=== PATIENT | male | born 1980 | race Caucasian/White ===

== ENCOUNTER → 2017-12-12 | Emergency (ER) | payer MEDICARE, OTHER ==
[~2017-12-12] VITALS: Ht 182.9 cm; Wt 83.9 kg
[~2017-12-12] MED LIST: HYDROCODONE/APAP 5MG-325MG TAB PO ONE
--- NOTE | 2017-12-12 18:34 | Diagnostic Imaging Report ---
Examination: CT BRAIN WITHOUT CONTRAST History:Fall; head injury. Comparison studies:None Technique: Axial images were obtained from the skull base to the vertex. Coronal and sagittal images reconstructed from the axial data. Dose modulation, iterative reconstruction, and/or weight based adjustment of the mA/kV was utilized to reduce the radiation dose to as low as reasonably achievable. Intravenous contrast: None Findings: Scalp: No abnormalities. Bones: No fractures, blastic or lytic lesions. Brain sulci: Appropriate for age. Ventricles: Normal in size and configuration. No hydrocephalus. Extra-axial space: No abnormalities. Parenchyma: Bilateral caudate atrophy. No masses, hemorrhage, or acute or chronic cortical based vascular insults.. Sellar/suprasellar region: No abnormalities. Craniocervical junction: Patent foramen magnum. No Chiari one malformation. Incidental findings: Mild circumferential inflammatory mucosal thickening of the right maxillary sinus. Impression: 1. No acute abnormality. 2. 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 Signed by: Dr. Monica Scott M.D. on 12/12/2017 6:30 PM
--- NOTE | 2017-12-12 18:39 | Diagnostic Imaging Report ---
Examination: CT CERVICAL SPINE WITHOUT CONTRAST HISTORY:Neck pain. Fall. COMPARISON:None. TECHNIQUE: Multidetector helical axial images were obtained without contrast from the foramen magnum to T1. Coronal and sagittal reformatted images were done. Bone and soft tissue windows were evaluated. Dose modulation, iterative reconstruction, and/or weight based adjustment of the mA/kV was utilized to reduce the radiation dose to as low as reasonably achievable. FINDINGS: Alignment:Normal alignment and lordosis. Vertebrae: Normal height and density. No acute fracture, infection or neoplasm. Disc space heights: Normal height. Caliber of spinal canal: Developmentally normal. Posterior fossa and craniocervical junction: Foramen magnum patent. No Chiari 1 malformation. Soft tissues: No abnormality. Degenerative changes: Severe bilateral neural foraminal narrowing at C3-C4. Severe left foraminal narrowing at C6-C7. No canal stenosis. IMPRESSION: No acute abnormalities. Signed by: Dr. Moncia Scott M.D. on 12/12/2017 6:36 PM
--- NOTE | 2017-12-12 18:44 | Diagnostic Imaging Report ---
Examination: CT LUMBAR SPINE WITHOUT CONTRAST History: Low back pain; fall. Comparison studies: None Technique: Axial images were obtained through the lumbar spine from L1. Coronal and sagittal reconstructions obtained from the axial data. Dose modulation, iterative reconstruction, and/or weight based adjustment of the mA/kV was utilized to reduce the radiation dose to as low as reasonably achievable. Intravenous contrast: None Findings: The usual 5 non-rib bearing lumbar vertebral bodies are present. Alignment: Normal lordosis. No scoliosis. Soft tissues: No abnormalities. Paraspinal muscles: Unremarkable. Sacroiliac joints: Mild bilateral vacuum phenomenon consistent with degenerative changes. Vertebrae: No fractures, infection or neoplasm. Degenerative changes: L1-L2 through L4-L5: No abnormalities. L5-S1: Vacuum phenomenon. Asymmetric to the right disc bulge results in severe right foraminal narrowing. No left foraminal or canal stenosis. IMPRESSION: 1. No acute abnormality. 2. Degenerative severe right foraminal narrowing at L5-S1. Signed by: Dr. Monica Scott M.D. on 12/12/2017 6:40 PM
--- NOTE | 2017-12-12 19:06 | Diagnostic Imaging Report ---
LOWER LEG LEFT - 2 views HISTORY: Pain. Back pain and fall. COMPARISON: None available. FINDINGS: Bones: No acute displaced fracture. Osseous alignment is within normal limits. Joints: The joint spaces are well-maintained. Soft tissues: The soft tissues appear unremarkable. IMPRESSION: No acute radiographic abnormality. Signed by: Dr. Cristian Chaparro M.D. on 12/12/2017 7:03 PM
--- NOTE | 2017-12-12 19:06 | Diagnostic Imaging Report ---
ANKLE 3 + VIEWS RIGHT - 3 views HISTORY: Pain. Fall and back pain COMPARISON: None available. FINDINGS: Bones: No acute displaced fracture. Osseous alignment is within normal limits. Joints: The joint spaces are well-maintained. Soft tissues: The soft tissues appear unremarkable. IMPRESSION: No acute radiographic abnormality. Signed by: Dr. Cristian Chaparro M.D. on 12/12/2017 7:03 PM
--- NOTE | 2017-12-12 19:07 | Diagnostic Imaging Report ---
FEMUR 2 VIEWS MINIMUM LEFT - 2 views HISTORY: Pain. Fall and pain COMPARISON: None available. FINDINGS: Bones: No acute displaced fracture. Osseous alignment is within normal limits. Joints: The joint spaces are well-maintained. Soft tissues: The soft tissues appear unremarkable. IMPRESSION: No acute radiographic abnormality. Signed by: Dr. Cristian Chaparro M.D. on 12/12/2017 7:03 PM
--- NOTE | 2017-12-12 19:08 | Diagnostic Imaging Report ---
EXAMINATION: CHEST SINGLE (PORTABLE) INDICATION: \S\fall, pain COMPARISON: Fall and back pain FINDINGS: AP view TUBES and LINES: None. LUNGS: Lungs are not well inflated. Questionable bilateral airspace opacities in both upper lungs. PLEURA: No pleural effusion or pneumothorax. HEART AND MEDIASTINUM: The cardiomediastinal silhouette is unremarkable. BONES AND SOFT TISSUES: No acute osseous lesion. Soft tissues are unremarkable. UPPER ABDOMEN: No free air under the diaphragm. IMPRESSION: Questionable bilateral airspace opacities in bilateral upper lobes. This may be secondary to positioning and overlapping soft tissue. However, focal pneumonia cannot be excluded. Recommend repeat chest x-ray with better lung inspiration. Signed by: Dr. Cristian Chaparro M.D. on 12/12/2017 7:05 PM
--- NOTE | 2017-12-12 19:09 | Diagnostic Imaging Report ---
PELVIS AP 1-2 VIEWS - 1 views HISTORY: Pain. Fall and pain COMPARISON: None available. FINDINGS: Bones: No acute displaced fracture. Osseous alignment is within normal limits. Joints: The joint spaces are well-maintained. Soft tissues: The soft tissues appear unremarkable. IMPRESSION: No acute radiographic abnormality. Signed by: Dr. Cristian Chaparro M.D. on 12/12/2017 7:06 PM
== END | disposition home or self-care (01) ==
LOC: ER 16:49
DX: M54.5 Low back pain (principal); S39.012A Strain of muscle, fascia and tendon of lower back, initial encounter; R51 Headache; S00.83XA Contusion of other part of head, initial encounter; M54.2 Cervicalgia; S16.1XXA Strain of muscle, fascia and tendon at neck level, initial encounter; S90.01XA Contusion of right ankle, initial encounter; S70.12XA Contusion of left thigh, initial encounter; S80.12XA Contusion of left lower leg, initial encounter; W18.39XA Other fall on same level, initial encounter; Y93.01 Activity, walking, marching and hiking; Y92.008 Other place in unspecified non-institutional (private) residence as the place of occurrence of the external cause; G10 Huntington's disease
CPT/HCPCS: 70450; 71045; 72125; 72131; 72170; 99281

== ENCOUNTER 2017-12-25 18:39 | Inpatient (IN) | payer MEDICARE, OTHER ==
[~2017-12-25] VITALS: Ht 182.9 cm; Wt 87.5 kg
[~2017-12-25 18:39] MED LIST changes: -HYDROCODONE/APAP 5MG-325MG TAB PO ONE; +IPRATROPIUM BROMIDE 0.02% 2.5 ML NEB NEB SCH
[2017-12-25] MEDS ORDERED: ACETAMINOPHEN 1000 MG/100 ML IV STA (19:12)
[2017-12-25] MEDS ORDERED: SODIUM CHLORIDE 0.9% 1000ML 1,000 ML IV ONE ×2 (19:15→20:45)
[2017-12-25] MEDS ORDERED: CEFTRIAXONE SOD 1 GM VIAL IV ONE (19:15)
[2017-12-25 19:44] LABS: BASOPHILS # (AUTO) 0.1 (0.0-0.1); BASOPHILS % 0.3 % (0.0-1.0); EOSINOPHILS % 0.2 % (0.0-6.0); HEMATOCRIT 43.3 % (38.2-49.6); HEMOGLOBIN 14.4 g/dL (14.0-18.0); LYMPHOCYTES # (AUTO) 1.4 (1.0-3.2); LYMPHOCYTES % 8.2 % (18.0-39.1); MEAN CORPUSCULAR HEMOGLOBIN 31.3 pg (28-32); MEAN CORPUSCULAR HGB CONC 33.3 g/dL (31-35); MEAN CORPUSCULAR VOLUME 94.1 fL (81-99); MONOCYTES # (AUTO) 2.1 (0.2-0.8); MONOCYTES % 12.2 % (4.4-11.3); NEUTROPHILS # (AUTO) 13.6 (2.1-6.9); NEUTROPHILS % 78.6 % (38.7-80.0); PLATELET COUNT 330 x10e3/uL (140-360); RED CELL DISTRIBUTION WIDTH 11.9 % (11.7-14.4)
--- NOTE | 2017-12-25 20:03 | Diagnostic Imaging Report ---
Examination: Single AP view of the chest. COMPARISON: December 12, 2017 INDICATION: Fever DISCUSSION: Lines/tubes: None. Lungs: Possible left lower lobe consolidation. Pleura: There is no pleural effusion or pneumothorax. Heart and mediastinum: The heart and the mediastinum are unremarkable. Bones and soft tissues: No acute bony abnormalities. IMPRESSION: 1. Possible left lower lobe pneumonia/aspiration. Signed by: Dr. Geovany Cunningham M.D. on 12/25/2017 8:00 PM
[2017-12-25 20:07] LABS: ALANINE AMINOTRANSFERASE 55 IU/L (0-55); ALBUMIN 3.9 g/dL (3.5-5.0); ALKALINE PHOSPHATASE 74 IU/L (40-150); ANION GAP 14.4 mmol/L (8-16); BLOOD UREA NITROGEN 11 mg/dL (7-26); BUN/CREATININE RATIO 10 (6-25); CALCIUM 10.1 mg/dL (8.4-10.2); CARBON DIOXIDE 28 mmol/L (22-29); CHLORIDE 95 mmol/L (98-107); CREATINE KINASE 593 IU/L (30-200); CREATININE, SERUM 1.08 mg/dL (0.72-1.25); EST GLOMERULAR FILTRATION RATE > 60 ML/MIN (60-); GLUCOSE 130 mg/dL (74-118); POTASSIUM 4.4 mmol/L (3.5-5.1); SODIUM 133 mmol/L (136-145)
--- NOTE | 2017-12-25 20:23 | Diagnostic Imaging Report ---
EXAMINATION: Head CT without contrast. HISTORY:Altered mental status, unable to move, history of Adelso's disease. COMPARISON:CT brain from 12/12/2017. TECHNIQUE: Multidetector axial images were obtained from the foramen magnum to the vertex without contrast. The images were reconstructed using brain and bone algorithms. Thin section brain images were reformatted into coronal and sagittal planes. Dose modulation, iterative reconstruction, and/or weight based adjustment of the mA/kV was utilized to reduce the radiation dose to as low as reasonably achievable. Intravenous contrast: None IMAGE QUALITY: Suboptimal evaluation due to motion-related streak artifacts. FINDINGS: Skull/scalp: No lytic or blastic. lesions. No surgical changes. Parenchyma: Unchanged bilateral caudate atrophy. No acute hemorrhage, mass or acute major vascular territorial infarct. Arteries: No density suggestive of thrombosis. Dural sinuses: No abnormal density suggestive of thrombosis. Ventricles: Unchanged exvacuodilatation of frontal horn of bilateral lateral ventricles secondary to caudate atrophy. No hydrocephalus. Extra-axial spaces: No abnormal density. Brain volume: Moderate generalized cerebral volume loss. Craniocervical junction: No mass, Chiari malformation, or basilar invagination. Sella: No mass. Paranasal/mastoid sinuses: Moderate mucosal thickening in bilateral maxillary sinus, mild mucosal thickening in left ethmoid sinus. IMPRESSION: 1. No acute intracranial abnormality. 2. Unchanged bilateral caudate atrophy, given history of known Dahlen's disease. 3. Moderate generalized cerebral volume loss, advanced for patient's given age. Signed by: Dr. Catia Lennon M.D. on 12/25/2017 8:20 PM
[2017-12-25 20:34] LABS: BILIRUBIN,URINE NEGATIVE (NEGATIVE); CLARITY,URINE SL CLOUDY (CLEAR); COLOR,URINE YELLOW (YELLOW); KETONES,URINE NEGATIVE (NEGATIVE); LEUKOCYTE ESTERASE ,URINE NEGATIVE (NEGATIVE); NITRITE,URINE NEGATIVE (NEGATIVE); PROTEIN,URINE DIPSTICK 1+ (NEGATIVE); URINE UROBILINOGEN 4 mg/dL (0.2 - 1)
[2017-12-25] MEDS ORDERED: AZITHROMYCIN 500MG/NS 250 ML 250 ML IV STA (20:39)
[2017-12-25] MEDS ORDERED: SODIUM CHLORIDE 0.9% 1000ML 1,000 ML ONE (20:41)
[2017-12-25 20:47] LABS: RBC,URINE 0-5 /HPF (0-5)
[2017-12-25 20:54] LABS: LYMPHOCYTES % (MANUAL) 5 % (19-48); MONOCYTES % (MANUAL) 7 % (3.4-9.0); NEUTROPHILS % (MANUAL) 79 % (40-74); PLATELET ESTIMATE ADEQUATE; PLATELET MORPHOLOGY COMMENT NORMAL; RBC MORPHOLOGY COMMENT NORMAL
[2017-12-25] MEDS ORDERED: ALBUTEROL SULF 0.083% NEB SOLN 3 ML NEB NEB SCH (21:30)
[2017-12-25] MEDS ORDERED: AUSTEDO PO (22:14)
[2017-12-25] MEDS ORDERED: CITALOPRAM HBR20 MG PO (22:14)
[2017-12-25] MEDS ORDERED: LORAZEPAM INJ 2 MG/ML VIAL IV ONE (22:15)
[2017-12-25] MEDS ORDERED: CEFTRIAXONE SOD 1 GM VIAL IV SCH (22:15)
[2017-12-25] MEDS: AZITHROMYCIN 500MG/NS 250 ML 250 ML IV SCH (22:20)
[2017-12-25 23:00] VITALS: BP 143/67
[2017-12-25] MEDS: SODIUM CHLORIDE 0.9% 1000ML 1,000 ML IV SCH (23:48)
[2017-12-25] MEDS: ACETAMINOPHEN 1000 MG/100 ML IV PRN (23:48)
[2017-12-25] MEDS: ONDANSETRON HCL INJ 2 MG/ML VIAL IV PRN (23:48)
[2017-12-26] VITALS (7 sets, daily range): BP systolic 126–143; BP diastolic 63–76
[2017-12-26 04:35] LABS: BASOPHILS % 0.2 % (0.0-1.0); EOSINOPHILS % 0.2 % (0.0-6.0); HEMATOCRIT 37.3 % (38.2-49.6); HEMOGLOBIN 12.5 g/dL (14.0-18.0); LYMPHOCYTES # (AUTO) 1.2 (1.0-3.2); LYMPHOCYTES % 8.8 % (18.0-39.1); MEAN CORPUSCULAR HEMOGLOBIN 31.3 pg (28-32); MEAN CORPUSCULAR HGB CONC 33.5 g/dL (31-35); MEAN CORPUSCULAR VOLUME 93.3 fL (81-99); MONOCYTES # (AUTO) 1.8 (0.2-0.8); MONOCYTES % 13.8 % (4.4-11.3); NEUTROPHILS # (AUTO) 10.1 (2.1-6.9); NEUTROPHILS % 76.6 % (38.7-80.0); PLATELET COUNT 283 x10e3/uL (140-360); RED CELL DISTRIBUTION WIDTH 12.1 % (11.7-14.4)
[2017-12-26 05:14] LABS: ALANINE AMINOTRANSFERASE 42 IU/L (0-55); ALBUMIN 3.1 g/dL (3.5-5.0); ALKALINE PHOSPHATASE 60 IU/L (40-150); ANION GAP 12.1 mmol/L (8-16); BLOOD UREA NITROGEN 10 mg/dL (7-26); BUN/CREATININE RATIO 10 (6-25); CALCIUM 8.8 mg/dL (8.4-10.2); CARBON DIOXIDE 27 mmol/L (22-29); CHLORIDE 102 mmol/L (98-107); CREATININE, SERUM 0.99 mg/dL (0.72-1.25); EST GLOMERULAR FILTRATION RATE > 60 ML/MIN (60-); GLUCOSE 114 mg/dL (74-118); POTASSIUM 4.1 mmol/L (3.5-5.1); SODIUM 137 mmol/L (136-145)
[2017-12-26 06:41] LABS: CREATINE KINASE 668 IU/L (30-200)
[2017-12-26] MEDS: ACETAMINOPHEN 1000 MG/100 ML IV PRN ×2 (07:20→18:19)
[2017-12-26] MEDS: SODIUM CHLORIDE 0.9% 1000ML 1,000 ML IV SCH ×2 (07:20→16:00)
--- NOTE | 2017-12-26 08:47 | History and Physical ---
CHIEF COMPLAINTS 1. Cough. 2. Fever. HPI: This is a 37-year-old male with a past medical history of Lyman chorea. He is seeing a neurologist. He was seen by me a few years ago. He was in his usual state of health until the patient came last night to the ER with fever and cough since the last 4 or 5 days. The patient's condition was getting worse. The fever was getting worse. The patient's mother brought the patient to the ER. He was found to have left lower lobe pneumonia. The patient also has a history of worsening of Adelso chorea with recurrent falls. The last CT in the ER showed normal head CT except for Adelso chorea changes. Unable to get more history from the patient, but he has high fever. No diarrhea. No abdominal pain. No nausea or vomiting. Has multiple bruises on the legs. ALLERGIES: NO KNOWN DRUG ALLERGIES. PAST MEDICAL HISTORY: Lyman chorea. PAST SURGICAL HISTORY: None. SOCIAL HISTORY: The patient is single and lives with his mother. HABITS: Denies smoking. Denies alcohol. Denies any illicit drug use. MEDICATIONS: List attached. REVIEW OF SYSTEMS GENERAL: Fever and recurrent falls. CARDIOPULMONARY: No chest pain. Has some cough. No shortness of breath. ALIMENTARY SYSTEM: No nausea or vomiting. GENITOURINARY SYSTEM: No dysuria. MUSCULOSKELETAL: Has some joint pain. CENTRAL NERVOUS SYSTEM: Has multiple rigidity, but no seizures. PHYSICAL EXAMINATION GENERAL: This is a 37-year-old male who is alert but oriented times 0. VITAL SIGNS: Temperature 101.4, blood pressure 126/63. HEENT: Head is atraumatic and normocephalic. Pupils are bilaterally equal and reactive to light. The extraocular muscles are intact. Neck is rigid. No clubbing. No cyanosis. Conjunctivae are normal. Sclerae are normal. LUNGS: Decreased breath sounds at the right base. HEART: S1 and S2, regular rate and rhythm. No S3, S4 or murmur. ABDOMEN: Soft. Nontender. No guarding. No rigidity. EXTREMITIES: No edema. Range of motion is normal but stiffness at the joints. SYNCHRONIZER: The patient has generalized weakness and oriented times 0. IMAGING: Chest x-ray: Left lower lobe pneumonia. CT of the head shows degenerative caudate nucleus. LABS: White count 17.26, hemoglobin and hematocrit normal, platelets normal. Urine is normal. Blood culture pending. Sodium 137, potassium 4.1, AST 36, CPK 593. EKG: Sinus tachycardia at 138 per minute. ASSESSMENT 1. Left lower lobe pneumonia, possible community acquired versus aspiration pneumonia. 2. Rule out dysphagia. 3. Worsening of Lyman chorea. 4. Recurrent falls. 5. Mild rhabdomyolysis. PLAN: Admit the patient to the medical floor. IV fluids with normal saline at 125 mL per hour. Rocephin 2 g IV q.24 h. Zithromax 500 IV q.24 h. ID consult with Dr. Hope. Pulmonary consult with Dr. Holden. Tylenol p.r.n. for fever. Labs tomorrow. Discussed with the mother that the patient is DNR, but mother will think about it and let us know about code status change or keep the same. Condition and prognosis are guarded and poor. Job#: [id number]
[2017-12-26 10:07] LABS: BAND NEUTROPHILS % (MANUAL) 2 %; LYMPHOCYTES % (MANUAL) 13 % (19-48); MONOCYTES % (MANUAL) 8 % (3.4-9.0); NEUTROPHILS % (MANUAL) 77 % (40-74); RBC MORPHOLOGY COMMENT NORMAL
[2017-12-26 10:08] LABS: PLATELET ESTIMATE ADEQUATE; PLATELET MORPHOLOGY COMMENT NORMAL; TOXIC GRANULATION SLIGHT
[2017-12-26 12:56] LABS: CREATINE KINASE 776 IU/L (30-200)
--- NOTE | 2017-12-26 14:39 | Consultation ---
DATE OF CONSULTATION: December 26, 2017 PULMONARY CONSULTATION REASON FOR CONSULTATION: Pneumonia. HPI: Mr. 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 Source of history is the chart and the mother. Patient cannot talk, has Homestead's chorea, and is unable to talk, has dementia as well. REVIEW OF SYSTEMS: Unable to elicit any from the patient. PAST MEDICAL HISTORY: Homestead's chorea. PAST SURGICAL HISTORY: None. FAMILY HISTORY AND SOCIAL HISTORY: He lives with his mother. He does not smoke, does not drink. PHYSICAL EXAMINATION VITAL SIGNS: Temperature 101.4, pulse 108, blood pressure 126/83, respiratory rate of 18. HEENT/NECK: Head atraumatic and normocephalic. Neck is supple. Oral mucosa is dry. Poor dentition. CHEST: Few crackles in the bases, but otherwise clear. HEART: S1, S2 audible. ABDOMEN: Soft. EXTREMITIES: No pedal edema. NEUROLOGIC: Awake and alert. Chest x-ray; left lower lobe infiltrative pneumonia. LABS: White count of 17,000, white count now is 13,000, hemoglobin 12.5, and platelets 283. Chemistries within normal limits. ASSESSMENT AND PLAN: Mr. Novoa is a 37-year-old unfortunate male with Adelso's chorea likely the risk for aspiration. Patient has leukocytosis and fever likely has aspiration pneumonitis. Continue the patient on Rocephin and azithromycin. Continue the nebulizer treatment. He seems to be responding well to this medication. Job#: [id number] RELL
--- NOTE | 2017-12-26 16:03 | Consultation ---
DATE OF CONSULTATION: December 26, 2017 REASON FOR CONSULTATION: Pneumonia. HISTORY OF PRESENT ILLNESS: This patient who is a 37-year-old white male with history of Gaines's chorea, being taken care by his mother. She says he has never been in a hospital except for a week ago when he fell and she brought him here where he had x-rays and CT scan. She was told there was no fracture. He did not stay in the hospital. He was just in the emergency room. Patient was discharged home and apparently while he was eating, he started to have some cough although he did not have this problem before. The patient who has history of Gaines's chorea, otherwise no other medical histories. So, she brought him here because of fever and chills. Patient was started on Rocephin and azithromycin. When he first came, his white count was 17.26, today is 13.16. Patient's mother thinks he is getting better overall clinically. The patient who is noncommunicative to me but she said that she can communicate generally with him. PAST MEDICAL HISTORY: Gaines's chorea. PAST SURGICAL HISTORY: Denies. ALLERGIES: NKA. SOCIAL HISTORY: There is no smoking, drug abuse, alcohol abuse. He lives with his mother. REVIEW OF SYSTEMS: According to her, he was just a bit confused. Positive cough and fever but now seems a lot better according to her. This is the first time he got pneumonia. He does not get flu vaccination but she gets flu vaccination. He is mainly homebound. LABS ON ADMISSION: White count 17.26, today is 13.16, hemoglobin 14, today is 12.5, platelets of . Sodium 137, potassium 4.1, creatinine of 0.99. His blood cultures still pending, urine cultures still pending. Chest x-ray which was done showed he have possible left lower lobe pneumonia. The patient of interest did have swallow evaluation and she is telling me that he passed the evaluation earlier today. PHYSICAL EXAMINATION GENERAL: He is currently alert and does not seem to be in acute distress. VITALS: Stable, currently afebrile. HEENT: He is normocephalic, not icteric. CHEST: A few crackles at the bases of left. COR: S1, S2. No murmur. ABDOMEN: Soft. IMPRESSION AND PLAN: Pneumonia, probably aspiration, community acquired. He is currently on Rocephin, azithromycin and clinically seems to be better. We will follow with you. I am still concerned he probably aspirated even though initial evaluation was negative. We will see how he is going to do in next 24 hours or so. Job#: [id number] SANDEE
[2017-12-26] MEDS: CEFTRIAXONE SOD 1 GM VIAL IV SCH (22:15)
[2017-12-26] MEDS: AZITHROMYCIN 500MG/NS 250 ML 250 ML IV SCH (22:15)
[2017-12-27] VITALS (7 sets, daily range): BP systolic 116–151; BP diastolic 58–76
[2017-12-27] MEDS ORDERED: ACETAMINOPHEN 325 MG TAB PO PRN (01:00)
[2017-12-27] MEDS ORDERED: GUAIFENESIN/CODEINE 10 ML CUP PO PRN (01:00)
[2017-12-27] MEDS: SODIUM CHLORIDE 0.9% 1000ML 1,000 ML IV SCH ×4 (01:30→18:13)
[2017-12-27] MEDS: ONDANSETRON HCL INJ 2 MG/ML VIAL IV PRN (02:31)
[2017-12-27 04:40] LABS: BASOPHILS % 0.2 % (0.0-1.0); EOSINOPHILS % 0.2 % (0.0-6.0); HEMATOCRIT 38.8 % (38.2-49.6); HEMOGLOBIN 12.9 g/dL (14.0-18.0); LYMPHOCYTES # (AUTO) 0.9 (1.0-3.2); LYMPHOCYTES % 7.4 % (18.0-39.1); MEAN CORPUSCULAR HEMOGLOBIN 31.5 pg (28-32); MEAN CORPUSCULAR HGB CONC 33.2 g/dL (31-35); MEAN CORPUSCULAR VOLUME 94.6 fL (81-99); MONOCYTES # (AUTO) 1.2 (0.2-0.8); MONOCYTES % 10.2 % (4.4-11.3); NEUTROPHILS # (AUTO) 9.9 (2.1-6.9); NEUTROPHILS % 81.7 % (38.7-80.0); PLATELET COUNT 259 x10e3/uL (140-360); RED CELL DISTRIBUTION WIDTH 12.1 % (11.7-14.4)
[2017-12-27 05:09] LABS: ANION GAP 14.9 mmol/L (8-16); BLOOD UREA NITROGEN 8 mg/dL (7-26); BUN/CREATININE RATIO 9 (6-25); CALCIUM 9.1 mg/dL (8.4-10.2); CARBON DIOXIDE 26 mmol/L (22-29); CHLORIDE 102 mmol/L (98-107); EST GLOMERULAR FILTRATION RATE > 60 ML/MIN (60-); GLUCOSE 112 mg/dL (74-118); POTASSIUM 3.9 mmol/L (3.5-5.1); SODIUM 139 mmol/L (136-145)
[2017-12-27] MEDS ORDERED: GUAIFENESIN/DEXTROMETHORPHAN LIQD 5 ML UDC NG PRN (08:30)
[2017-12-27] MEDS ORDERED: METHOCARBAMOL 500 MG TAB PO PRN (08:45)
[2017-12-27] MEDS: CITALOPRAM HYDROBROMIDE 20 MG TAB PO SCH (09:00)
[2017-12-27] MEDS: DEUTETRABENAZINE 24 MG PO SCH ×2 (09:00→17:00)
[2017-12-27] MEDS ORDERED: BACLOFEN 10 MG TAB PO SCH (09:00)
[2017-12-27] MEDS: ACETAMINOPHEN 325 MG/10 ML UDC PO PRN ×2 (10:25→16:23)
[2017-12-27] MEDS: BACLOFEN 10 MG TAB PO SCH ×2 (16:23→21:24)
--- NOTE | 2017-12-27 18:01 | Consultation ---
DATE OF CONSULTATION: December 27, 2017 NEUROLOGY CONSULTATION HISTORY OF PRESENT ILLNESS: Mr. Novoa is a 37-year-old right hand dominant man with past medical history significant for Louisburg's chorea, admitted to [facility] on December 25, 2017 with fever and aspiration pneumonia. A neurology consultation is requested for further evaluation and treatment of Louisburg's chorea. Mr. Novoa was diagnosed with Louisburg's chorea at the age of 25 years. He inherited this disorder from his father who was diagnosed at age of 40 years and approximately 2 years ago. Since February 2017, Mr. Novoa has been on Austedo 24 mg by mouth twice daily. According to the patient's mother, who is at the bedside, this medicine has significantly improved his choreiform movements. Mr. Novoa is on citalopram as well for mood stabilization. His mother does not report depression, anxiety, irritability, or mood swings. Mr. Novoa has a home health aide 36 hours per week. For an additional 20 hours per week, he has a sitter to stay at home with him. At present, an aide comes to his home every weekday and helps the patient bathe, changes him, feeds him, and assist with exercises. Nurse comes once a week to check vital signs. Mr. Novoa receives physical therapy two times a week. Recently, he has begun to receive speech therapy one time per week. The patient's mother reports there are ramps, wheelchairs, and walkers available at the home. Mr. Novoa's mother does report more frequent falls over the past several weeks. Mr. Novoa has dysphasia. To treat this, his mother often pureed his meat and serves it with mashed potatoes and gravy to assist with swallowing. Unfortunately, due to the presence of Adelso's disease for the past 13 years, the patient does have [id number] cognitive impairment. Approximately 3 days prior to admission, Mr. Novoa developed a productive cough, nasal congestion, and shortness of breath. This prompted his mother to bring him to the emergency center at [facility] for evaluation. Mr. Novoa was diagnosed with aspiration pneumonia and admitted to the hospital for intravenous antibiotics. REVIEW OF SYSTEMS: Shortness of breath, productive cough, nasal congestion, dysarthria, dysphasia, impairment of balance and gait, involuntary movements, cognitive impairments. Otherwise, 12-point review of systems is negative. PAST MEDICAL HISTORY: Adelso's chorea. PAST SURGICAL HISTORY: None. PAST HOSPITALIZATIONS: None. FAMILY MEDICAL HISTORY: The patient's paternal grandparents are . His paternal grandfather is from coronary artery disease with a myocardial infarction. He was the carrier for Adelso's disease. The patient's paternal grandmother is from cancer. Mr. Novoa's maternal grandfather is alive. He has COPD and heart disease secondary to rheumatic fever. The patient's maternal grandmother is from complications of Alzheimer's disease. As stated in the history of present illness, Mr. Novoa's father is from Adelso's chorea approximately 2 years ago. His mother is alive and healthy. The patient has one brother and one sister, both of whom are alive and healthy. Neither siblings carries the gene for Louisburg's chorea. Mr. Novoa has no biological children. SOCIAL HISTORY: The patient is single. He is on disability. There is no reported current or prior tobacco or recreational drug use. Mr. Novoa will drink an occasional beer. HOME MEDICATIONS: Austedo 24 mg by mouth twice daily, citalopram 20 mg by mouth daily. ALLERGIES: NO KNOWN DRUG ALLERGIES. NO KNOWN FOOD ALLERGIES. NO KNOWN ALLERGIES TO LATEX. NO KNOWN ALLERGIES TO IODINE OR OTHER CONTRAST MATERIALS. PHYSICAL EXAMINATION VITAL SIGNS: Height 72 inches, weight 197 pounds, BMI 26.8 kg per meter squared, blood pressure 130/58 mmHg, pulse 109 beats per minute, respiratory rate 19 breaths per minute, and oxygen saturation 94% on 2 liters by nasal cannula. GENERAL: The patient is awake and alert, does not appear distressed. HEENT: Normocephalic, atraumatic. Pupils are equal, round, and reactive to light. Moist mucous membranes. NECK: Supple. No appreciable thyromegaly. No appreciable carotid bruits. CARDIOVASCULAR: S1 and S2, tachycardic, regular rhythm. No murmurs, rubs, or gallops. RESPIRATORY: Clear to auscultation bilaterally. No wheezes, rhonchi, or rales. EXTREMITIES: The skin is warm and dry. No clubbing, cyanosis, or edema. The posterior tibial and dorsalis pedis pulses are 2+ and symmetric. SKIN: No rashes or lesions. NEUROLOGIC: MEMORY/ATTENTION: The patient is awake and alert. CRANIAL NERVES: Cranial nerve I - Not tested. Cranial nerve II, III, IV, and - Pupils are equal and round, react briskly to light (from 4 mm to 2 mm). Extraocular movements intact. No nystagmus. Cranial nerve V - Sensation to light touch is intact in the bilateral V1 through V3 distributions. Strength of the temporalis and masseter muscles is within normal limits. Cranial nerve VII - Face is symmetric as are all facial movements. Strength is within normal limits. Cranial nerve VIII - Hearing is intact to finger rub bilaterally. Cranial nerve IX, X - The soft palate elevates equally and symmetrically. Cranial nerve XII - The tongue protrudes in midline and moves symmetrically from side to side. STRENGTH: Bulk is normal. There is spontaneous movements in all 4 extremities. Tone is increased in all 4 extremities. DTRs: Deep tendon reflexes are 2+ and symmetric at the triceps, biceps, brachioradialis, patellas, and Achilles. Plantar responses are flexor bilaterally. SENSATION: Sensation is intact to light touch in both arms and both legs. CEREBELLAR: Unable to assess secondary to choreiform movements. GAIT: Unable to assess secondary to choreiform movements. SPEECH: Spontaneous speech is moderately dysarthric without aphasia. Repetition is intact. INVOLUNTARY MOVEMENTS: Involuntary choreiform movements around the mouth, both arms, and both legs. PRONATOR DRIFT: As per motor exam. LABORATORY DATA: Most recent basic metabolic panel is unremarkable. Creatine kinase 593, 668, 776. CK-MB and troponin I are within normal limits. The CBC with differential and platelets reveals an elevated white blood cell count of 12.17 with 81.7% neutrophils, 7.4% lymphocytes, 10.2% monocytes, 0.2% eosinophils, and 0.2% basophils. Urinalysis collected on admission revealed slightly cloudy urine with 1+ protein, 1+ blood, and 4 urobilinogen. Influenza type A, B antigen negative. Blood culture collected on December 25, 2017 showed no growth after 24 hours. Urine culture collected on December 25, 2017 shows no growth at 36 to 48 hours. DIAGNOSTIC STUDIES 1. Electrocardiogram, December 25, 2017: Sinus tachycardia at 138 beats per minute. 2. Chest x-ray, December 25, 2017: Possible left lower lobe pneumonia/aspiration. 3. CT of the brain without contrast, December 25, 2017: On my review, there is no evidence of recent large territorial ischemia, hemorrhage, mass, or mass effect. There is moderate diffuse cerebral atrophy, much more than expected for the patient's age. There is bilateral caudate atrophy, compatible with the patient's known diagnosis of Louisburg's disease. ASSESSMENT AND PLAN: Mr. Novoa is a 37-year-old right hand dominant man with past medical history significant for Louisburg's chorea, admitted to [facility] on December 25, 2017 with pneumonia, probably aspiration pneumonia. The patient has undergone a thorough neurological examination with findings detailed above. His laboratory data and other diagnostic studies have been reviewed and are documented above. Mr. Novoa has an outpatient neurologist, Dr. Chelle Albrecht. Dr. Alicia was informed of the patient's admission to this hospital. In conjunction with Dr. Albrecht, recommendations are as follows: Continue Austedo 24 mg by mouth twice daily. Prescribed baclofen 5 mg by mouth three times daily. The patient should continue taking this dose of medication for the next 2 weeks. If it is tolerated, the dose should be increased to 10 mg by mouth three times daily. Continue treatment with citalopram 20 mg by mouth daily. Continue intravenous antibiotics and supplemental oxygen for pneumonia. Follow the speech therapy recommendations for eating. Thank you for this consultation. I will continue to follow this patient while he remains in the hospital. Time spent: 70 minutes. Job#: [id number] MAX ADKINS
[2017-12-27] MEDS: CEFTRIAXONE SOD 1 GM VIAL IV SCH (22:04)
[2017-12-27] MEDS: AZITHROMYCIN 500MG/NS 250 ML 250 ML IV SCH (22:05)
[2017-12-28] VITALS: BP 132/70
[2017-12-28] MEDS: ACETAMINOPHEN 325 MG/10 ML UDC PO PRN (03:50)
[2017-12-28 04:00] VITALS: BP 133/68
[2017-12-28 04:42] LABS: BASOPHILS % 0.2 % (0.0-1.0); EOSINOPHILS # (AUTO) 0.2 (0.0-0.4); EOSINOPHILS % 1.2 % (0.0-6.0); HEMATOCRIT 41.3 % (38.2-49.6); HEMOGLOBIN 13.9 g/dL (14.0-18.0); LYMPHOCYTES # (AUTO) 1.2 (1.0-3.2); LYMPHOCYTES % 9.2 % (18.0-39.1); MEAN CORPUSCULAR HEMOGLOBIN 31.2 pg (28-32); MEAN CORPUSCULAR HGB CONC 33.7 g/dL (31-35); MEAN CORPUSCULAR VOLUME 92.6 fL (81-99); MONOCYTES # (AUTO) 1.1 (0.2-0.8); MONOCYTES % 8.6 % (4.4-11.3); NEUTROPHILS # (AUTO) 10.4 (2.1-6.9); NEUTROPHILS % 80.4 % (38.7-80.0); PLATELET COUNT 305 x10e3/uL (140-360); RED BLOOD COUNT 4.46 x10e6/uL (4.3-5.7); RED CELL DISTRIBUTION WIDTH 12.1 % (11.7-14.4)
[2017-12-28 05:04] LABS: BLOOD UREA NITROGEN 6 mg/dL (7-26); BUN/CREATININE RATIO 8 (6-25); CALCIUM 9.4 mg/dL (8.4-10.2); CARBON DIOXIDE 24 mmol/L (22-29); CHLORIDE 102 mmol/L (98-107); EST GLOMERULAR FILTRATION RATE > 60 ML/MIN (60-); GLUCOSE 107 mg/dL (74-118); SODIUM 138 mmol/L (136-145)
[2017-12-28 07:33] VITALS: BP 114/63
[2017-12-28] MEDS: CITALOPRAM HYDROBROMIDE 20 MG TAB PO SCH (09:00)
[2017-12-28] MEDS: DEUTETRABENAZINE 24 MG PO SCH (09:00)
[2017-12-28 09:40] VITALS: BP 114/63
[2017-12-28] MEDS: BACLOFEN 10 MG TAB PO SCH (09:44)
[2017-12-28 11:31] VITALS: BP 132/61
[2017-12-28] MEDS: SODIUM CHLORIDE 0.9% 1000ML 1,000 ML IV SCH (11:45)
[2017-12-28] MEDS ORDERED: AUGMENTIN 875-1 EACH PO (15:32)
[2017-12-28] MEDS ORDERED: BACLOFEN10 MG PO (15:33)
[2017-12-28 15:51] VITALS: BP 128/74
--- OUTSIDE RECORDS SUMMARY | 2017-12-30 13:14 | XMS REPORT | Summary of Care ---
Author Author [facility] Organization [facility] Address [address], [address] [place] [address] Phone Care Team Providers Care Director Investment Banking Name Role Phone TRACE MORALES M.D. 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 Quantity: 30 ANDREW Salazar, TRACE * Start : 19-Feb-2017 Active Austedo 9 MG Oral Tablet 1 tab bid * Refills: 0 Active Allergies and Adverse Reactions Name Dates Details No Known Allergies (Allergy) Status: Active Procedures Procedure Dates Details [QL] CMP W/EGFR Date: 06-Jun-2017 History of no history of surgery Completed Immunization Name Dates Details Immunizations not documented Family History Name Dates Details Family history of hypertension (V17.49, Z82.49) Status: Active Family history of hyperlipidemia (V18.19, Z83.49) Status: Active Name Dates Details Family history of Box Elder's chorea (V17.2, Z82.0) Status: Active Social History Name Dates Details Unknown if ever smoked Vital Signs Date Test Result Details No Known Vitals to report Results Date Description Value Details Results not documented Plan of Care Name Dates Details Planned Observations Planned Goals not documented Planned Encounters Appointment; MD STEF On: 25-Jun-2017 16:00 Instructions Name Dates Details Instructions not documented Encounters Appointment; MD STEF Encounter Diagnosis: Problem not documented On: 19-Feb-2017 15:00 Appointment; MD STEF Encounter Diagnosis: Problem not documented On: 26-Mar-2017 16:00
--- OUTSIDE RECORDS SUMMARY | 2017-12-30 13:14 | XMS REPORT | Clinical Summary ---
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 COMPREHENSIVE METABOLIC Routine 06/12/2017 [place]'s chorea Results for this PANEL 8:00 PM CDT procedure are in the results section. after 12/24/2016 Results * Estimated GFR (06/12/2017 8:00 PM) GFR Non Af Amer 74 mL/min/1.[address] [facility] DEPARTMENT OF PATHOLOGY AND GENOMIC MEDICINE GFR Af Amer >90 mL/min/1.[address] [facility] DEPARTMENT OF Comment: PATHOLOGY AND Chronic kidney disease: <60 GENOMIC MEDICINE mL/min/1.73m2 Kidney failure: <15 mL/min/1.73m2 The estimated GFR is calculated from the IDMS-traceable Modification of Diet in Renal Disease Equation. The accuracy of the calculation is poor when the creatinine is normal. Calculated values >90 mL/min/1.73m2 are not reported. This equation has not been validated in children (<18 years), women, the elderly (>70 years), or ethnic groups other than Caucasians and Americans. Specimen Plasma specimen Performing Organization Address City/State/Zipcode Phone Number [facility] DEPARTMENT OF [facility] [place] [address] PATHOLOGY AND GENOMIC MEDICINE * Comprehensive metabolic panel (06/12/2017 8:00 PM) Sodium 140 135 - 150 mEq/L [facility] DEPARTMENT OF PATHOLOGY AND GENOMIC MEDICINE Potassium 4.2 3.5 - 5.0 mEq/L [facility] DEPARTMENT OF PATHOLOGY AND GENOMIC MEDICINE Chloride 102 100 - 109 mEq/L [facility] DEPARTMENT OF PATHOLOGY AND GENOMIC MEDICINE CO2 31 24 - 32 mmol/L [facility] DEPARTMENT OF PATHOLOGY AND GENOMIC MEDICINE Anion gap 7 7 - 15 mEq/L [facility] DEPARTMENT OF Comment: PATHOLOGY AND Starting from [facility] , anion gap calculation no longer incorporates potassium. Please note the change. BUN 15 7 - 18 mg/dL [facility] DEPARTMENT OF PATHOLOGY AND GENOMIC MEDICINE Creatinine 1.1 0.8 - 1.5 mg/dL [facility] DEPARTMENT OF PATHOLOGY AND GENOMIC MEDICINE Glucose 85 65 - 100 mg/dL [facility] DEPARTMENT OF PATHOLOGY AND GENOMIC MEDICINE Calcium 9.7 8.6 - 10.7 mg/dL [facility] DEPARTMENT OF PATHOLOGY AND GENOMIC MEDICINE Protein 7.8 6.3 - 8.2 g/dL [facility] DEPARTMENT OF PATHOLOGY AND GENOMIC MEDICINE Albumin 4.4 3.2 - 5.0 g/dL [facility] DEPARTMENT OF PATHOLOGY AND GENOMIC MEDICINE A/G ratio 1.3 0.7 - 3.[address] [facility] DEPARTMENT OF PATHOLOGY AND GENOMIC MEDICINE Alkaline phosphatase 88 30 - 120 U/L [facility] DEPARTMENT OF PATHOLOGY AND GENOMIC MEDICINE AST 17 15 - 37 U/L [facility] DEPARTMENT OF PATHOLOGY AND GENOMIC MEDICINE ALT 25 (L) 30 - 65 U/L [facility] DEPARTMENT OF PATHOLOGY AND GENOMIC MEDICINE Total bilirubin 0.4 0.2 - 1.2 mg/dL [facility] DEPARTMENT OF PATHOLOGY AND GENOMIC MEDICINE Specimen Plasma specimen Performing Organization Address City/State/Zipcode Phone Number [facility] DEPARTMENT [address] [place] [address] PATHOLOGY AND GENOMIC MEDICINE after 12/24/2016 Insurance Payer Benefit Subscriber ID Type Phone Address Plan / Group MEDICARE MEDICARE xxxxxxxxxx Medicare [place], [place] [address]
--- OUTSIDE RECORDS SUMMARY | 2017-12-30 13:14 | XMS REPORT ---
Author Author [facility] Address Unknown Phone Unavailable Care Team Providers Care Infrastructure Design Engineer Name Role Phone Natividad POWELL Unavailable Unavailable Winifred RACHEL Unavailable Unavailable Problems This patient has no known problems. Allergies, Adverse Reactions, Alerts This patient has no known allergies or adverse reactions. Medications This patient has no known medications. Results Test Description Test Time Test Comments Text Results Atomic Results Result Comments CT BRAIN WO 2017-12-25 20:13:00 [place] [address] Patient Name: SETH CUENCA MR #: [id number] : 1980 Age/Sex: 37/M Req #: [id number] Adm Physician: Ordered by: AKILA POWELL MD Report #: [id number] Location: ER Room/Bed: Procedure: [id number] CT/CT BRAIN WO Exam Date: 12/25/17 Exam Time: 1939 REPORT STATUS: Signed EXAMINATION: Head CT without contrast. HISTORY:Altered mental status, unable to move, history of Ferguson's disease. COMPARISON:CT brain from 12/12/2017. TECHNIQUE: Multidetector axial images were obtained from the foramen magnum to the vertex without contrast. The images were reconstructed using brain and bone algorithms. Thin section brain images were reformatted into coronal and sagittal planes. Dose modulation, iterative reconstruction, and/or weight based adjustment of the mA/kV was utilized to reduce the radiation dose to as low as reasonably achievable. Intravenous contrast: None IMAGE QUALITY: Suboptimal evaluation due to motion-related streak artifacts. FINDINGS: Skull/scalp: No lytic or blastic. lesions. No surgical changes. Parenchyma: Unchanged bilateral caudate atrophy. No acute hemorrhage, mass or acute major vascular territorial infarct. Arteries: No density suggestive of thrombosis. Dural sinuses: No abnormal density suggestive of thrombosis. Ventricles: Unchanged exvacuodilatation of frontal horn of bilateral lateral ventricles secondary to caudate atrophy. No hydrocephalus. Extra-axial spaces: No abnormal density. Brain volume: Moderate generalized cerebral volume loss. Craniocervical junction: No mass, Chiari malformation, or basilar invagination. Sella: No mass. Paranasal/mastoid sinuses: Moderate mucosal thickening in bilateral maxillary sinus, mild mucosal thickening in left ethmoid sinus. IMPRESSION: 1. No acute intracranial abnormality. 2. Unchanged bilateral caudate atrophy, given history of known Adelso's disease. 3. Moderate generalized cerebral volume loss, advanced for patient's given age. Signed by: Dr. Catia Lennon M.D. on 12/25/2017 8:20 PM Dictated By: CATIA LENNON MD 19 Transcribed By: MADELIN on 12/25/172019 COPY TO: AKILA POWELL MD CHEST SINGLE (PORTABLE) 2017-12-25 19:57:00 [place] [address] Patient Name: SETH CUENCA MR #: [id number] : 1980 Age/Sex: 37/M Req #: [id number] Adm Physician: Ordered by: AKILA POWELL MD Report #: [id number] Location: Room/Bed: Procedure: [id number] DX/CHEST SINGLE (PORTABLE) Exam Date: 12/25/17 Exam Time: 194 REPORT STATUS: Signed Examination: Single AP view of the chest. COMPARISON: December 12, 2017 INDICATION: Fever DISCUSSION: Lines/tubes: None. Lungs: Possible left lower lobe consolidation. Pleura: There is no pleural effusion or pneumothorax. Heart and mediastinum: The heart and the mediastinum are unremarkable. Bones and soft tissues: No acute bony abnormalities. IMPRESSION: 1. Poss ible left lower lobe pneumonia/aspiration. Signed by: Dr. Rachelle Freeman M.D. on 12/25/2017 8:00 PM Dictated By: RACHELLE FREEMAN MD 99 Transcribed By: MADELIN on 12/25/171999 COPY TO: AKILA POWELL MD PELVIS AP 1-2 VIEWS 2017-12-12 19:06:00 [place] [address] Patient Name: SETH CUENCA MR #: [id number] : 1980 Age/Sex: 37/M Req #: [id number] Adm Physician: Ordered by: CYNTHIA RACHEL MD Report #: [id number] Location: ER Room/Bed: Procedure: [id number] DX/PELVIS AP 1-2 VIEWS Exam Date: 12/12/17 Exam Time: 1849 REPORT STATUS: Signed PELVIS AP 1-2 VIEWS - 1 views HISTORY: Pain. Fall and pain COMPARISON: None available. FINDINGS: Bones: No acute displaced fracture. Osseous alignment is within normal limits. Joints: The joint spaces are well-maintained. Soft tissues: The soft tissues appear unremarkable. IMPRESSION: No acute radiographic abnormality. Signed by: Dr. Candace Palmer M.D. on 12/12/2017 7:06 PM Dictated By: CANDACE PALMER MD 05 Transcribed By: MADELIN on 12/12/171905 COPY TO: CYNTHIA RACHEL MD ANKLE 3 + VIEWS RIGHT 2017-12-12 19:03:00 [place] [address] Patient Name: SETH CUENCA MR #: [id number] : 1980 Age/Sex: 37/M Req #: [id number] Adm Physician: Ordered by: CYNTHIA RACHEL MD Report #: [id number] Location: ER Room/Bed: Procedure: [id number] DX/ANKLE 3 + VIEWS RIGHT Exam Date: 12/12/17 Exam Time: 1810 REPORT STATUS: Signed ANKLE 3 + VIEWS RIGHT - 3 views HISTORY: Pain. Fall and back pain COMPARISON: None available. FINDINGS: Bones: No acute displaced fracture. Osseous alignment is within normal limits. Joints: The joint spaces are well-maintained. Soft tissues: The soft tissues appear unremarkable. IMPRESSION: No acute radiographic abnormality. Signed by: Dr. Candace Palmer M.D. on 12/12/2017 7:03 PM Dictated By: CANDACE PALMER MD 02 Transcribed By: MADELIN on 12/12/171902 COPY TO: CYNTHIA RACHEL MD FEMUR 2 VIEWS MINIMUM LEFT 2017-12-12 19:03:00 [place] [address] Patient Name: SETH CUENCA MR #: [id number] : 1980 Age/Sex: 37/M Req #: [id number] Adm Physician: Ordered by: CYNTHIA RACHEL MD Report #: [id number] Location: ER Room/Bed: Procedure: [id number] DX/FEMUR 2 VIEWS MINIMUM LEFT Exam Date: Exam Time: REPORT STATUS: Signed FEMUR 2 VIEWS MINIMUM LEFT - 2 views HISTORY: Pain. Fall and pain COMPARISON: None available. FINDINGS: Bones: No acute displaced fracture. Osseous alignment is within normal limits. Joints: The joint spaces are well-maintained. Soft tissues: The soft tissues appear unremarkable. IMPRESSION: No acute radiographic abnormality. Signed by: Dr. Candace Palmer M.D. on 12/12/2017 7:03 PM Dictated By: CANDACE PALMER MD 02 Transcribed By: MADELIN on 12/12/171902 COPY TO: CYNTHIA RACHEL MD CHEST SINGLE (PORTABLE) 2017-12-12 19:03:00 [place] [address] Patient Name: SETH CUENCA MR #: [id number] : 1980 Age/Sex: 37/M Req #: [id number] Adm Physician: Ordered by: CYNTHIA RACHEL MD Report #: [id number] Location: ER Room/Bed: Procedure: [id number] DX/CHEST SINGLE (PORTABLE) Exam Date: 12/12/17 Exam Time: 1810 REPORT STATUS: Signed EXAMINATION: CHEST SINGLE (PORTABLE) INDICATION: S fall, pain COMPARISON: Fall and back pain FINDINGS: AP view TUBES and LINES: None. LUNGS: Lungs are not well inflated. Questionable bilateral airspace opacities in both upper lungs. PLEURA: No pleural effusion or pneumothorax. HEART AND MEDIASTINUM: The cardiomediastinal silhouette is unremarkable. BONES AND SOFT TISSUES: No acute osseous lesion. Soft tissues are unremarkable. UPPER ABDOMEN: No free air under the diaphragm. IMPRESSION: Questionable bilateral airspace opacities in bilateral upper lobes. This may be secondary to positioning and overlapping soft tissue. However, focal pneumonia cannot be excluded. Recommend repeat chest x-ray with better lung inspiration. Signed by: Dr. Candace Palmer M.D. on 12/12/2017 7:05 PM Dictated By: CANDACE PALMER MD 04 Transcribed By: MADELIN on 12/12/171904 COPY TO: CYNTHIA RACHEL MD LOWER LEG LEFT 2017-12-12 19:02:00 [place] [address] Patient Name: SETH CUENCA MR #: [id number] : 1980 Age/Sex: 37/M Req #: [id number] Adm Physician: Ordered by: CYNTHIA RACHEL MD Report #: [id number] Location: ER Room/Bed: Procedure: [id number] DX/LOWER LEG LEFT Exam Date: 12/12/17 Exam Time: 1810 REPORT STATUS: Signed LOWER LEG LEFT - 2 views HISTORY: Pain. Back pain and fall. COMPARISON: None available. FINDINGS: Bones: No acute displaced fracture. Osseous alignment is within normal limits. Joints: The joint spaces are well-maintained. Soft tissues: The soft tissues appear unremarkable. IMPRESSION: No acute radiographic abnormality. Signed by: Dr. Cnadace Palmer M.D. on 12/12/2017 7:03 PM Dictated By: CANDACE PALMER MD 02 Transcribed By: MADELIN on 12/12/171902 COPY TO: CYNTHIA RACHEL MD CT LUMBAR SPINE WO 2017-12-12 18:36:00 [place] [address] Patient Name: SETH CUENCA MR #: [id number] : 1980 Age/Sex: 37/M Req #: [id number] Adm Physician: Ordered by: CYNTHIA RACHEL MD Report #: [id number] Location: ER Room/Bed: Procedure: [id number] CT/CT LUMBAR SPINE WO Exam Date: 12/12/17 Exam Time: 1730 REPORT STATUS: Signed Examination: CT LUMBAR SPINE WITHOUT CONTRAST History: Low back pain; fall. Comparison studies: None Technique: Axial images were obtained through the lumbar spine from L1. Coronal and sagittal reconstructions obtained from the axial data. Dose modulation, iterative reconstruction, and/or weight based adjustment of the mA/kV was utilized to reduce the radiation dose to as low as reasonably achievable. Intravenous contrast: None Findings: The usual 5 non-rib bearing lumbar vertebral bodies are present. Alignment: Normal lordosis. No scoliosis. Soft tissues: No abnormalities. Paraspinal muscles: Unremarkable. Sacroiliac joints: Mild bilateral vacuum phenomenon consistent with degenerative changes. Vertebrae: No fractures, infection or neoplasm. Degenerative changes: L1-L2 through L4-L5: No abnormalities. L5-S1: Vacuum phenomenon. Asymmetric to the right disc bulge results in severe right foraminal narrowing. No left foraminal or canal stenosis. IMPRESSION: 1. No acute abnormality. 2. Degenerative severe right foraminal narrowing at L5-S1. Signed by: Dr. Monica Mcwilliams M.D. on 12/12/2017 6:40 PM Dictated By: MONICA PASCAL MD 39 Transcribed By: MADELIN on 12/12/171839 COPY TO: CYNTHIA RACHEL MD CT CERVICAL SPINE WO 2017-12-12 18:31:00 [place] [address] Patient Name: SETH CUENCA MR #: [id number] : 1980 Age/Sex: 37/M Req #: [id number] Adm Physician: Ordered by: CYNTHIA RACHEL MD Report #: [id number] Location: ER Room/Bed: Procedure: [id number] CT/CT CERVICAL SPINE WO Exam Date: 12/12/17 Exam Time: 1730 REPORT STATUS: Signed Examination: CT CERVICAL SPINE WITHOUT CONTRAST HISTORY:Neck pain. Fall. COMPARISON:None. TECHNIQUE: Multidetector helical axial images were obtained without contrast from the foramen magnum to T1. Coronal and sagittal reformatted images were done. Bone and soft tissue windows were evaluated. Dose modulation, iterative reconstruction, and/or weight based adjustment of the mA/kV was utilized to reduce the radiation dose to as low as reasonably achievable. FINDINGS: Alignment:Normal alignment and lordosis. Vertebrae: Normal height and density. No acute fracture, infection or neoplasm. Disc space heights: Normal height. Caliber of spinal canal: Developmentally normal. Posterior fossa and craniocervical junction: Foramen magnum patent. No Chiari 1 malformation. Soft tissues: No abnorm ality. Degenerative changes: Severe bilateral neural foraminal narrowing at C3-C4. Severe left foraminal narrowing at C6-C7. No canal stenosis. IMPRESSION: No acute abnormalities. Signed by: Dr. Monica Mcwilliams M.D. on 12/12/2017 6:36 PM Dictated By: MONICA PASCAL MD 35 Transcribed By: MADELIN on 12/12/171835 COPY TO: CYNTHIA RACHEL MD CT BRAIN WO 2017-12-12 18:25:00 [place] [address] Patient Name: SETH CUENCA MR #: [id number] : 1980 Age/Sex: 37/M Req #: [id number] Adm Physician: Ordered by: CYNTHIA RACHEL MD Report #: [id number] Location: ER Room/Bed: Procedure: [id number] CT/CT BRAIN WO Exam Date: 12/12/17 Exam Time: 1730 REPORT STATUS: Signed Examination: CT BRAIN WITHOUT CONTRAST History:Fall; head injury. Comparison studies:None Technique: Axial images were obtained from the skull base to the vertex. Coronal and sagittal images reconstructed from the axial data. Dose modulation, iterative reconstruction, and/or weight based adjustment of the mA/kV was utilized to reduce the radiation dose to as low as reasonably achievable. Intravenous contrast: None Findings: Scalp: No abnormalities. Bones: No fractures, blastic or lytic lesions. Brain sulci: Appropriate for age. Ventricles: Normal in size and configuration. No hydrocephalus. Extra-axial space: No abnormalities. Parenchyma: Bilateral caudate atrophy. No masses, hemorrhage, or acute or chronic cortical based vascular insults.. Sellar/suprasellar region: No abn ormalities. Craniocervical junction: Patent foramen magnum. No Chiari one malformation. Incidental findings: Mild circumferential inflammatory mucosal thickening of the right maxillary sinus. Impression: 1. No acute abnormality. 2. 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 Signed by: Dr. Monica Mcwilliams M.D. on 12/12/2017 6:30 PM Dictated By: MONICA PASCAL MD 29 Transcribed By: MADELIN on 12/12/171829 COPY TO: CYNTHIA RACHEL MD
--- OUTSIDE RECORDS SUMMARY | 2017-12-30 13:14 | XMS REPORT | Clinical Summary ---
Author Author [facility] Organization [facility] Address Unknown Phone Unavailable Care Team Providers Care Windscreen Fitter Name Role Phone Asked, No Pcp PCP [...] the results section. COMPREHENSIVE METABOLIC Routine 06/12/2017 [place]'s chorea Results for this PANEL 8:00 PM CDT procedure are in the results section. after 12/24/2016 Results * Estimated GFR (06/12/2017 8:00 PM) GFR Non Af Amer 74 mL/min/1.73 m2 [facility] DEPARTMENT OF PATHOLOGY AND GENOMIC MEDICINE GFR Af Amer >90 mL/min/1.73 m2 [facility] DEPARTMENT OF Comment: PATHOLOGY AND Chronic kidney [...] specimen Performing Organization Address City/State/Zipcode Phone Number [facility] DEPARTMENT OF [facility] [place] [address] PATHOLOGY AND GENOMIC MEDICINE * Comprehensive metabolic panel (06/12/2017 8:00 PM) Sodium 140 135 - 150 mEq/L [facility] DEPARTMENT OF PATHOLOGY AND GENOMIC MEDICINE Potassium 4.2 3.5 - 5.0 mEq/L [facility] DEPARTMENT OF PATHOLOGY AND GENOMIC MEDICINE Chloride 102 100 - 109 mEq/L [facility] DEPARTMENT OF PATHOLOGY AND GENOMIC MEDICINE CO2 31 24 - 32 mmol/L [facility]PARTMENT OF PATHOLOGY AND GENOMIC MEDICINE Anion gap 7 7 - 15 mEq/L [facility] DEPARTMENT OF Comment: PATHOLOGY AND Starting from June [facility] MEDICINE , anion gap calculation no longer incorporates potassium. Please note the change. BUN 15 7 - 18 mg/dL [facility] DEPARTMENT OF PATHOLOGY AND GENOMIC MEDICINE Creatinine 1.1 0.8 - 1.5 mg/dL [facility] DEPARTMENT OF PATHOLOGY AND GENOMIC MEDICINE Glucose 85 65 - 100 mg/dL [facility] DEPARTMENT OF PATHOLOGY AND GENOMIC MEDICINE Calcium 9.7 8.6 - 10.7 mg/dL [facility] DEPARTMENT OF PATHOLOGY AND GENOMIC MEDICINE Protein 7.8 6.3 - 8.2 g/dL [facility] DEPARTMENT OF PATHOLOGY AND GENOMIC MEDICINE Albumin 4.4 3.2 - 5.0 g/dL [facility] DEPARTMENT OF PATHOLOGY AND GENOMIC MEDICINE A/G ratio 1.3 0.7 - 3.8 [facility] DEPARTMENT OF PATHOLOGY AND GENOMIC MEDICINE Alkaline phosphatase 88 30 - 120 U/L [facility] DEPARTMENT OF PATHOLOGY AND GENOMIC MEDICINE AST 17 15 - 37 U/L [facility] DEPARTMENT OF PATHOLOGY AND GENOMIC MEDICINE ALT 25 (L) 30 - 65 U/L [facility] DEPARTMENT OF PATHOLOGY AND GENOMIC MEDICINE Total bilirubin 0.4 0.2 - 1.2 mg/dL [facility] DEPARTMENT OF PATHOLOGY AND GENOMIC MEDICINE Specimen Plasma specimen Performing Organization Address City/State/Zipcode Phone Number [facility] DEPARTMENT [address] [address] PATHOLOGY AND GENOMIC MEDICINE after 12/24/2016 Insurance Payer Benefit Subscriber ID Type Phone Address Plan / Group MEDICARE MEDICARE xxxxxxxxxx Medicare [place], [place] [address]
--- NOTE | 2018-03-03 01:44 | Discharge Summary ---
CHIEF COMPLAINT: Adelso chorea, pneumonia. FINAL DIAGNOSES: 1. Kimberton chorea. 2. Pneumonia. 3. Dehydration. DISPOSITION: Home. A 37-year-old male developed a change in mental status, noted to have Adelso's chorea, presented with worsening mental status and increased weakness. His mother stated that he recently fell and is now having trouble moving at all, has been coughing for the past couple of days, and has noted to have a temp of 101. It is noted that patient is normally confused and has mobility issues, but these conditions have been worse over the last 2 days. Was reviewed further in the emergency room and admitted to the facility for evaluation due to acute mental status change with confusion, bacterial pneumonia. With admission, patient was being reviewed by Dr. Rojo from a neurology standpoint due to his mental condition, and she states that the patient has Kimberton's chorea and pneumonia, probably aspiration pneumonia. Recommend continuing current medication. Also there was some evidence of the patient having mild rhabdomyolysis, could be related to muscle damage due to the fall that he had. The patient was on med-surg floor, began n.p.o. status, was receiving nebulizer treatments. Was started on azithromycin as well as ceftriaxone due to the pneumonia findings. His laboratory studies were showing stable electrolytes. Kidney functions stable. Glucose 114. CBC was showing a white cell count elevated at 13,000. Hemoglobin was stable. Patient was still having some mild temperature issues, somewhat agitational, cough was continuing. His antibiotic management was continuing. White blood cell count was improving. Was now on a regular diet. Will be taking the patient off the Zithromax, however, continuing on the Rocephin. Will be changing also over to Augmentin 875 p.o. b.i.d. for [address] Hope. Patient was stable, was doing better, was noted to be more alert, was cleared for discharge and was able to be released home on December 28, 2017 in stable condition. EKG was showing sinus tachycardia. With release to home, patient will continue on routine diet. No equipment or supplies necessary. No drains or [place] are needed. Activity level as directed by myself as well as by Dr. Hope and Dr. Rojo. Was given a prescription by Dr. Rojo for baclofen 5 mg take 1 tablet p.o. t.i.d. #42, also another prescription for baclofen 10 mg take 1 tablet p.o. t.i.d. dispensed 90, one refill. Was also given a prescription by Dr. Hope for Augmentin 875 per 125 one tablet twice a day. Also Austedo 24 mg twice a day, citalopram 20 mg daily. The patient will be returning to my office within 3 to 5 days for followup. The family will be contacting me sooner if there are any further difficulties or any questions that they might have. Dictated By: BEA Hammond EDUARDO RECINOS MD Job#: [id number]
== END 2017-12-28 16:00 | disposition home or self-care (01) | DRG 178 ==
LOC: ER 18:39 → ERHOLD 21:21 → MED/SURG2 23:04
PROVIDERS: ADMIT Internal Medicine; ATTEND Internal Medicine
DX: J69.0 Pneumonitis due to inhalation of food and vomit (principal); G10 Huntington's disease; M62.82 Rhabdomyolysis; R13.10 Dysphagia, unspecified; Z91.81 History of falling; F02.80 Dementia in other diseases classified elsewhere, unspecified severity, without behavioral disturbance, psychotic disturbance, mood disturbance, and anxiety; E86.0 Dehydration
CPT/HCPCS: 36415; 70450; 71045; 80048; 80053; 81001; 82550; 82553; 83605; 84484; 85025; 87040; 87086; 87400; 93005; 99284; J0456; J0696; J2060; J2405; J7030